=== PATIENT | female | born 1965 | race Caucasian/White ===

== ENCOUNTER 2021-02-12 12:37 | Emergency (ER) | payer OTHER | END 2021-02-12 16:12 | disposition home or self-care (01) | LOC: FER 12:37 | DX: S90.31XA Contusion of right foot, initial encounter (principal); M79.661 Pain in right lower leg; I10 Essential (primary) hypertension; Z88.6 Allergy status to analgesic agent; W50.0XXA Accidental hit or strike by another person, initial encounter; Y92.89 Other specified places as the place of occurrence of the external cause; Y99.0 Civilian activity done for income or pay | CPT/HCPCS: 73620; 93971 ==